=== PATIENT | female | born 1945 | race Native Hawaiian/Other Pacific Islander ===

== ENCOUNTER → 2016-09-25 | Outpatient (CLI) | payer MEDICARE ==
[~2016-09-25] MED LIST: ASPI1TAB69 PO; HYDR12.56 PO; LISI10TA3 PO; LOVA40TA PO; METH10TA PO; OXYC1TAB63 PO
[2016-09-25 11:18] LABS: AUTOMATED NEUTROPHIL # 4.5 TH/MM3 (1.8-7.7); BASOPHIL % 0.7 % (0.0-2.0); EOSINOPHIL % 0.4 % (0.0-4.0); HEMATOCRIT 26.7 % (35.0-46.0); HEMO FLAGS DIFF FINAL; LYMPH % 26.1 % (9.0-44.0); LYMPHOCYTE # 1.9 TH/MM3 (1.0-4.8); MEAN CELL VOLUME 87.7 FL (80.0-100.0); MEAN CORPUSCULAR HEMOGLOBIN 28.7 PG (27.0-34.0); MEAN CORPUSCULAR HGB CONC 32.7 % (32.0-36.0); MONO % 8.9 % (0.0-8.0); NEUT % 63.9 % (16.0-70.0); PLATELET COUNT 227 TH/MM3 (150-450); RED BLOOD COUNT 3.05 MIL/MM3 (4.00-5.30); RED CELL DISTRIBUTION WIDTH 13.7 % (11.6-17.2); WHITE BLOOD COUNT 7.1 TH/MM3 (4.0-11.0)
[2016-09-25 11:18] LABS: APTT (PATIENT) 23.6 SEC (24.3-30.1); PROTHROMBIN TIME - PATIENT 10.8 SEC (9.8-11.6)
[2016-09-25 11:31] LABS: ALKALINE PHOSPHATASE 66 U/L (45-117); ALT (GPT) 24 U/L (10-53); ANION GAP 7 MEQ/L (5-15); AST (GOT) 24 U/L (15-37); BICARBONATE 28.5 MEQ/L (21.0-32.0); BLOOD UREA NITROGEN 23 MG/DL (7-18); CHLORIDE 105 MEQ/L (98-107); GLOMERULAR FILTRATION RATE 48 ML/MIN (>89); GLUCOSE,FASTING 102 MG/DL (74-99); POTASSIUM 4.4 MEQ/L (3.5-5.1); SODIUM (NA) 140 MEQ/L (136-145); TOTAL BILIRUBIN ADULT 0.5 MG/DL (0.2-1.0)
--- NOTE | 2016-09-25 14:36 | EKG ---
Date Performed: 09/25/2016 Time Performed: 10:38:05 PTAGE: 71 years EKG: Sinus rhythm NONSPECIFIC T-WAVE ABNORMALITY BORDERLINE ECG Compared to prior tracing no significant change PREVIOUS TRACING 12/05/2003 11.56.03 DOCTOR: Eder Sutton Interpretating Date/Time 09/25/2016 14:35:05
--- NOTE | 2016-09-25 15:48 | RADRPT ---
EXAM DATE/TIME: 09/25/2016 11:19 [facility] COMPARISON: No previous studies available for comparison. INDICATIONS : Evaluate for pneumothorax, pneumonia or communicable disease Pre surgery uterine surgery MEDICAL HISTORY : None. SURGICAL HISTORY : None. ENCOUNTER: Initial ACUITY: 1 day PAIN SCORE: 0/10 LOCATION: Chest FINDINGS: There is a nodular density within the left upper lung field consistent with possible granuloma. The heart is top normal in size. The pulmonary vascular pattern is normal. The lungs are clear. Degener ative changes and scoliosis of the thoracolumbar spine are noted. Hardware is noted within the cervi hunter spine. There is no pneumothorax. CONCLUSION: 1. Probable tiny granuloma within the left upper lung field. 2. No acute focal pulmonary infiltrate or pulmonary vascular congestion. 3. Degenerative changes and scoliosis of the thoracolumbar spine. Joseph Bo MD on September 25, 2016 at 15:43 Board Certified Radiologist. This report was verified electronically.
== END ==
LOC: CPRE 10:03
PROVIDERS: ATTEND Obstetrics & Gynecology Gynecologic Oncology
DX: C53.9 Malignant neoplasm of cervix uteri, unspecified (principal); R94.31 Abnormal electrocardiogram [ECG] [EKG]
CPT/HCPCS: 36415; 71020; 80053; 85025; 85610; 85730; 93005

== ENCOUNTER → 2016-09-30 | Day surgery (SDC) | payer MEDICARE ==
[~2016-09-30] VITALS: Ht 157.5 cm; Wt 79.2 kg
[~2016-09-30] MED LIST changes: +DICLOFENAC SODIUM 37.5 MG/ML VIAL IV PUSH ONE; +DO NOT ADM ANY ANTICOAGULANT DRUGS XX PRN; +FERRIC SUBSULFATE 8 ML TOP SOLN TOPICAL ONE; +HYDROmorphone HCL PF 2 MG/ML VIAL ONE; +INSULIN HUMAN REGULAR 1,000 UNITS/10 ML VIAL SQ PRN; +KETOROLAC TROMETHAMINE 30 MG/ML (IVP) VIAL IV PUSH ONE; +LACTATED RINGER'S 1000 ML INJ 1,000 ML IV ONE; +LACTATED RINGER'S 1000 ML IV SCH; +LIDOCAINE 1%/EPINEPHrine 1:100,000 SOLN 50 ML VIAL ONE; +METOPROLOL TARTRATE 25 MG TAB PO PRN; +MIDAZOLAM HCL 2 MG/2 ML VIAL ONE; +ONDANSETRON HCL 4 MG/2 ML VIAL IV PUSH ONE; +PROPOFOL 200 MG/20 ML AMP IV ONE; +SILVER NITR/POTASSIUM NITRATE APPLICATORS ONE; +SODIUM CHLORID 0.9% 500 ML IV SCH
[2016-09-30 06:18] VITALS: BP 156/74; PULSE 84; RESP 20; TEMP 97.9; O2SAT 100
[2016-09-30 11:09] VITALS: BP 119/64; PULSE 65; RESP 16; O2SAT 100
[2016-09-30 11:51] LABS: AUTOMATED NEUTROPHIL # 10.2 TH/MM3 (1.8-7.7); BASOPHIL % 0.3 % (0.0-2.0); EOSINOPHIL % 0.1 % (0.0-4.0); HEMATOCRIT 28.7 % (35.0-46.0); LYMPH % 9.9 % (9.0-44.0); LYMPHOCYTE # 1.1 TH/MM3 (1.0-4.8); MEAN CELL VOLUME 88.1 FL (80.0-100.0); MEAN CORPUSCULAR HEMOGLOBIN 27.7 PG (27.0-34.0); MEAN CORPUSCULAR HGB CONC 31.5 % (32.0-36.0); MONO % 1.2 % (0.0-8.0); NEUT % 88.5 % (16.0-70.0); PLATELET COUNT 219 TH/MM3 (150-450); RED BLOOD COUNT 3.26 MIL/MM3 (4.00-5.30); RED CELL DISTRIBUTION WIDTH 13.3 % (11.6-17.2); WHITE BLOOD COUNT 11.5 TH/MM3 (4.0-11.0)
[2016-09-30 12:26] LABS: HEMO FLAGS AUTO DIFF
[2016-09-30 12:33] LABS: SCAN/DIFF AUTO DIFF CONFIRMED
--- NOTE | 2016-10-02 05:43 | MP ---
cc: LAURA DAVIS M.D., MARTHA M.D. MOLPUS, KELLY L. MD DATE OF SURGERY 09/30/2016 PREOPERATIVE DIAGNOSIS Endocervical versus endometrial adenocarcinoma. POSTOPERATIVE DIAGNOSIS Endometrial adenocarcinoma. HISTORY A 71-year-old female who had adenocarcinoma on a Pap smear. Cervix biopsy and endocervical curettings were benign, endometrial sampling not obtained. Imaging suggested thickening and fluid in the endometrial cavity. She was counseled regarding the need for further information to try to clarify the origin of the tumor and did provide additional details and she presents now for exam under anesthesia. She is seen in the preop holding area again where she is again counseled. Her questions were answered. She expressed good understanding and agreed to move forward. FINDINGS On exam under anesthesia there is no appreciably enlarged inguinal lymph nodes. External genitalia without mass or lesion. The vaginal mucosa and cervix grossly appear normal except for a small polypoid cystic mass at the 9 o'clock position on the cervix. There is no parametrial nodularity. The uterus and cervix are mobile. The uterine cavity sounds to 10 cm. On endocervical curetting, a scant amount of tissue is obtained. On endometrial curetting a large volume of polypoid tumor- appearing tissue is obtained. Frozen section of endometrial biopsy pending at the time of this dictation. PROCEDURE The patient is taken to the operating room, placed in dorsal lithotomy position after laryngeal mask anesthesia was administered. Time-out was undertaken. The patient was identified by sight recognition and hospital ID bracelet and the proposed procedure was reviewed and confirmed. She was carefully positioned in lithotomy position. Exam under anesthesia was performed with findings as described above. She was prepped and draped in sterile fashion. In-and-out catheterization of the bladder was performed. The cervix was grasped. Biopsy was taken at the 9 o'clock position on the cervix and then endocervical curettings were performed circumferentially, multiple passes. The tissue was combined as endocervical curettings. The cervix was then dilated after the uterine cavity was sounded to a depth of 10 cm. Multiple circumferential passes of the endometrium revealed a high volume of polypoid, tumor-appearing tissue. At the end of the curetting most of the endometrial surfaces had returned to a gritty feedback. There was complete hemostasis and the cervical biopsy sites and tenaculum site were rendered hemostatic with topical Monsel's solution. Pelvic exam confirmed there were no remaining foreign objects in the vagina. Preliminary and final counts were correct. She was returned to dorsal supine position and was pending reversal of anesthesia when I left the operating room to precede her to the Post-Anesthesia Care Unit. MD MICHELLE Ho/PEYTON /8:25 AM /5:33 AM
== END | disposition home or self-care (01) ==
LOC: HSDC 05:27
PROVIDERS: ATTEND Obstetrics & Gynecology Gynecologic Oncology
DX: C54.1 Malignant neoplasm of endometrium (principal); N95.0 Postmenopausal bleeding; N72 Inflammatory disease of cervix uteri
CPT/HCPCS: 00940; 58120; 85025; 86850; 86900; 86901; 88305; 88331; J1130; J1170; J2250; J2405; J7120

== ENCOUNTER 2016-10-20 08:33 | Observation (INO) | payer MEDICARE ==
[~2016-10-20] VITALS: Ht 157.5 cm; Wt 77.0 kg
[~2016-10-20 08:33] MED LIST changes: -DICLOFENAC SODIUM 37.5 MG/ML VIAL IV PUSH ONE; -DO NOT ADM ANY ANTICOAGULANT DRUGS XX PRN; -FERRIC SUBSULFATE 8 ML TOP SOLN TOPICAL ONE; -HYDROmorphone HCL PF 2 MG/ML VIAL ONE; -INSULIN HUMAN REGULAR 1,000 UNITS/10 ML VIAL SQ PRN; -KETOROLAC TROMETHAMINE 30 MG/ML (IVP) VIAL IV PUSH ONE; -LACTATED RINGER'S 1000 ML INJ 1,000 ML IV ONE; -LACTATED RINGER'S 1000 ML IV SCH; -LIDOCAINE 1%/EPINEPHrine 1:100,000 SOLN 50 ML VIAL ONE; -METOPROLOL TARTRATE 25 MG TAB PO PRN; -MIDAZOLAM HCL 2 MG/2 ML VIAL ONE; -ONDANSETRON HCL 4 MG/2 ML VIAL IV PUSH ONE; -OXYC1TAB63 PO; -PROPOFOL 200 MG/20 ML AMP IV ONE; -SILVER NITR/POTASSIUM NITRATE APPLICATORS ONE; -SODIUM CHLORID 0.9% 500 ML IV SCH
[2016-10-20 09:14] VITALS: BP 156/70; PULSE 78; RESP 16; TEMP 98.7; O2SAT 100
[2016-10-20] MEDS ORDERED: SODIUM CHLORID 0.9% 500 ML IV PRN (09:15)
[2016-10-20] MEDS ORDERED: LACTATED RINGER'S 1000 ML IV PRN (09:15)
[2016-10-20] MEDS ORDERED: METOPROLOL TARTRATE 25 MG TAB PO PRN (09:15)
[2016-10-20] MEDS ORDERED: POVIDONE IODINE 5% (ANTISEPSIS KIT) 4 APPLICATIONS EACH NARE PRN (09:15)
[2016-10-20] MEDS ORDERED: INSULIN HUMAN REGULAR 1,000 UNITS/10 ML VIAL SQ PRN (09:15)
[2016-10-20] MEDS ORDERED: CHLORHEXIDINE GLUCONATE 2 % 1 PACK (2 CLOTHS) TOPICAL PRN (09:15)
[2016-10-20] MEDS ORDERED: HEPARIN SODIUM - SQ 10,000 UNITS/ML VIAL SQ SCH (09:30)
[2016-10-20] MEDS ORDERED: ceFAZolin 1,000 MG/NS 100 ML IV SCH ×2 (09:30)
[2016-10-20] MEDS ORDERED: ACETAMINOPHEN 1000 MG/100 ML VIAL IV ONE (11:20)
[2016-10-20] MEDS ORDERED: SUGAMMADEX SODIUM 200 MG/2 ML VIAL IV PUSH ONE ×2 (11:20)
[2016-10-20] MEDS ORDERED: fentaNYL CITRATE 250 MCG/5 ML AMP ONE ×2 (11:27→15:50)
[2016-10-20] MEDS ORDERED: FAMOTIDINE 20 MG/2 ML VIAL ONE (11:27)
[2016-10-20] MEDS ORDERED: MIDAZOLAM HCL 2 MG/2 ML VIAL ONE (11:27)
[2016-10-20] MEDS ORDERED: ONDANSETRON HCL 4 MG/2 ML VIAL IV PUSH ONE (12:00)
[2016-10-20] MEDS ORDERED: NORMOSOL R INJ 2,000 ML IV ONE (12:00)
[2016-10-20] MEDS ORDERED: NEOSTIGMINE 3 MG/3 ML SYR IV ONE (12:00)
[2016-10-20] MEDS ORDERED: PROPOFOL 200 MG/20 ML AMP IV ONE (12:00)
[2016-10-20] MEDS ORDERED: ePHEDrine/NS 25 MG/5 ML SYR IV ONE (12:00)
[2016-10-20] MEDS ORDERED: LIDOCAINE 1%/EPINEPHrine 1:100,000 SOLN 50 ML VIAL INFIL ONE (12:55)
[2016-10-20] MEDS ORDERED: ceFAZolin INJ 1,000 MG VIAL IV ONE (14:04)
[2016-10-20] MEDS ORDERED: METHYLENE BLUE 100 MG/10 ML VIAL OTHER ONE (14:21)
[2016-10-20] MEDS ORDERED: SILVER NITR/POTASSIUM NITRATE APPLICATORS TOPICAL ONE (15:12)
[2016-10-20] MEDS ORDERED: DO NOT ADM ANY ANTICOAGULANT DRUGS PRN (15:44)
[2016-10-20 15:45] VITALS: BP 146/65; PULSE 80; RESP 18; TEMP 96.6; O2SAT 98
[2016-10-20] MEDS ORDERED: ONDANSETRON HCL 4 MG/2 ML VIAL IVP PRN (16:00)
[2016-10-20] MEDS: KETOROLAC TROMETHAMINE 30 MG/ML (IVP) VIAL IVP SCH ×2 (16:00→22:55)
[2016-10-20] MEDS ORDERED: ONDANSETRON INJ 8 MG in DEXTROSE 5% IN WATER INJ 50 ML IV PUSH PRN ×2 (16:00)
[2016-10-20] MEDS ORDERED: SODIUM CHLORIDE 0.9% FLUSH 10 ML FLUSH IV FLUSH PRN (16:00)
[2016-10-20] MEDS ORDERED: oxyCODONE/ACETAMINOPHEN 5 MG/325 MG TAB PO PRN ×2 (16:00)
[2016-10-20] MEDS ORDERED: LORazepam 0.5 MG TAB PO PRN (16:00)
[2016-10-20] MEDS ORDERED: diphenhydrAMINE HCL 25 MG CAP PO PRN (16:00)
[2016-10-20] MEDS: D5-1/2 NS + KCL 20 MEQ INJ 1,000 ML IV SCH ×2 (16:17→22:55)
[2016-10-20] MEDS ORDERED: *morphine SULFATE 8 MG/ML PERIprocedure ONLY ONE (16:21)
[2016-10-20] MEDS: METHADONE HCL 10 MG TAB PO SCH (18:42)
[2016-10-20 20:00] VITALS: BP 123/58; PULSE 80; RESP 16; TEMP 97.6; O2SAT 98
[2016-10-20] MEDS: SODIUM CHLORIDE 0.9% FLUSH 10 ML FLUSH IV FLUSH SCH (20:02)
[2016-10-21] VITALS: BP 99/51; PULSE 72; RESP 16; TEMP 96.6; O2SAT 98
[2016-10-21 04:00] VITALS: BP 99/50; PULSE 67; RESP 16; TEMP 97.3; O2SAT 100
[2016-10-21 04:57] VITALS: O2SAT 98
[2016-10-21] MEDS: KETOROLAC TROMETHAMINE 30 MG/ML (IVP) VIAL IVP SCH ×2 (05:04→08:45)
[2016-10-21 05:35] LABS: AUTOMATED NEUTROPHIL # 7.2 TH/MM3 (1.8-7.7); BASOPHIL % 0.2 % (0.0-2.0); HEMATOCRIT 23.9 % (35.0-46.0); HEMO FLAGS DIFF FINAL; LYMPHOCYTE # 1.5 TH/MM3 (1.0-4.8); MEAN CELL VOLUME 85.1 FL (80.0-100.0); MEAN CORPUSCULAR HEMOGLOBIN 28.3 PG (27.0-34.0); MEAN CORPUSCULAR HGB CONC 33.2 % (32.0-36.0); MONO % 7.3 % (0.0-8.0); NEUT % 76.5 % (16.0-70.0); PLATELET COUNT 155 TH/MM3 (150-450); RED BLOOD COUNT 2.81 MIL/MM3 (4.00-5.30); RED CELL DISTRIBUTION WIDTH 13.6 % (11.6-17.2); WHITE BLOOD COUNT 9.4 TH/MM3 (4.0-11.0)
[2016-10-21 06:21] LABS: BICARBONATE 28.6 MEQ/L (21.0-32.0); POTASSIUM 4.3 MEQ/L (3.5-5.1)
[2016-10-21 08:00] VITALS: BP 103/55; PULSE 70; RESP 16; TEMP 96.7; O2SAT 98
[2016-10-21] MEDS: D5-1/2 NS + KCL 20 MEQ INJ 1,000 ML IV SCH (08:00)
[2016-10-21] MEDS: METHADONE HCL 10 MG TAB PO SCH (08:44)
[2016-10-21] MEDS ORDERED: OXYC1TAB63 PO (08:44)
[2016-10-21] MEDS: SODIUM CHLORIDE 0.9% FLUSH 10 ML FLUSH IV FLUSH SCH (08:45)
[2016-10-21] MEDS ORDERED: LISINOPRIL 10 MG TAB PO SCH (09:00)
[2016-10-21] MEDS ORDERED: PRAVASTATIN SOD 40 MG TAB PO SCH (09:00)
[2016-10-21] MEDS ORDERED: HYDROCHLOROTHIAZIDE 12.5 MG CAP PO SCH (09:00)
--- NOTE | 2016-10-27 07:32 | MP ---
cc: LAURA DAVIS M.D., KELLY L. MD ARGUELO, MARTHA, MD DATE OF SURGERY 10/20/2016 PREOPERATIVE DIAGNOSIS Uterine papillary serous carcinoma. POSTOPERATIVE DIAGNOSES 1. Uterine papillary serous carcinoma. 2. Extensive pelvic adhesions. PROCEDURE 1. Robotic-assisted laparoscopic hysterectomy bilateral salpingo-oophorectomy, extensive lysis of adhesions. 2. Left ureterolysis. SURGEON Radha Chester MD FILTER WASHER Ulster sampler first. ANESTHESIA General endotracheal anesthesia ESTIMATED BLOOD LOSS 300 cc. URINE OUTPUT 400 cc. IV FLUIDS 2200 cc. HISTORY A 71-year-old female with postmenopausal bleeding, thickened endometrial stripe. D&C showed high-grade endometrial cancer consistent with uterine papillary serous carcinoma. She underwent a PET/CT scan that showed multifocal PET-avid nodularity highly suspicious for metastatic disease including what was interpreted as bilateral PET-avid pelvic lymph nodes, a PET-avid lymph node at the aortic bifurcation, a conglomeration of PET-avid adenopathy high in the periaortic and pericaval region at the level of the renal vessels, left axillary and left supraclavicular PET-avid adenopathy. She has been counseled regarding these findings and the need to consider postoperative chemotherapy as well as the limitations with respect to surgery being able to address of all these areas surgically. We have agreed upon the objectives to remove the primary tumor with hysterectomy, bilateral salpingo-oophorectomy and assess for metastatic disease, remove what can safely be removed with the anticipation of chemotherapy after she recovers from surgery. She was seen again in the preop holding area where we again discussed these objectives findings and plan and she expressed good understanding. FINDINGS The uterus was symmetrically enlarged, approximately 10 cm. Both ovaries were prominent. The left ovary was approximately 6 cm, was partially retroperitonealized, was densely adherent to the left pelvic sidewall posterior cul-de-sac and the sigmoid colon and mesentery were overlying this mass. The right ovary was approximately 4 cm and was fixed in the posterior cul-de-sac against the right pelvic sidewall and there were dense adhesions in the cul-de-sac and lower uterine segment in the region of the bladder flap. STATEMENT OF COMPLEXLY The complexity of this case was increased significantly due to the dense pelvic adhesions. A significant amount of additional time was required to lyse adhesions, restore anatomy to gain access to the pelvis and to accomplish surgical objectives. Modifier should be applied accordingly. PROCEDURE The patient was taken to the operating room, placed in dorsal lithotomy position. After general endotracheal anesthesia was administered, time-out was undertaken. The patient was identified by sight recognition and hospital ID brafareed and the proposed procedure was reviewed and confirmed. She was carefully positioned in padded Ronan stirrups. Her arms were padded and secured to her sides. She was further secured to the operating table with eggcrate padding and tape in across-chest [id number] fashion. All sites were noted be properly aligned with no malalignments or pressure points. She was prepped in sterile fashion, draped below the waist, placed in high lithotomy position. The cervix was grasped, uterine cavity sounded, the cervix dilated. V-CARE manipulator was inserted and secured in the usual fashion. Garibay catheter was placed in the bladder. She was returned to low lithotomy position. A change of sterile gloves was undertaken. We completed draping in anticipation of laparoscopy. Laparoscopy confirmed that an orogastric tube was in the stomach on suction. With manual elevation of the abdominal wall and direct laparoscopic visualization, a 5-mm cannula was placed in the left upper quadrant. Carbon dioxide gas was insufflated, then a 12-mm cannula was placed in midline above the umbilicus and an 8-mm cannula was placed in the right upper and left lateral abdomen, the 5-mm cannula exchanged for an 8-mm cannula. Perineal washings were obtained for cytology. The anatomy was explored with the findings as described above. She is placed in steep Trendelenburg position. The small bowel was folded back on its mesenteric root to the extent possible and three Ray-Yaya sponges were placed around the root of the small bowel mesentery. The robotic system was brought into the operative field, attached in the usual fashion. Monopolar scissors, fenestrated bipolar forceps and ProGrasp manipulators placed in arms #1, 2 and 3 respectively and I took my place at the surgeon's console. Extensive lysis of adhesions was carried out to free the right ovary from its attachments to the posterior cul-de-sac and right pelvic sidewall, to free the ileocecal region from overlying at the pelvic brim adhesions. The right round ligament was isolated, cauterized, transected. Anterior and posterior leaves of the broad ligament were opened, the right ureter was identified, right infundibulopelvic ligament was isolated. The infundibulopelvic ligament was dissected to the level of the pelvic brim where it was cauterized and transected. Additional lysis of adhesion was used to dissect open the rectovaginal septum as the colon was adherent posteriorly and to reestablish the anatomy of the cul-de-sac. The posterior peritoneum was opened and the right vesicouterine peritoneum was dissected off the lower uterine segment and cervix with lysis of adhesions. The right uterine vessels were skeletonized and cauterized and then attention was directed toward the left side. Retroperitoneal dissection was carried out. Extensive lysis of adhesion were required to mobilize the colon from the overlying structures and to remove the right ovary from its adhesions that were circumferential and to mobilize it from its retroperitoneal position. The left round ligament was isolated, cauterized, transected. The anterior and posterior leaves of the broad ligament were further dissected until the ureter was identified as it crossed the iliac bifurcation. Sharp and blunt dissection were used to dissect the adjacent tissue to free the ureter along its course in the pelvis which allowed the infundibulopelvic ligament to be mobilize ventrally and the intervening peritoneum was opened. The infundibulopelvic ligament was cauterized at the level of the pelvic brim and transected and additional lysis of adhesion was carried out posteriorly and laterally until the left tube and ovary could be elevated. During this dissection it was clear that there was what appeared to be tumor extruding through the capsule of the left ovarian mass. Some of this tissue was obtained laparoscopically and sent for frozen section analysis which confirmed a high-grade adenocarcinoma. The left uterine vessels were now skeletonized as the vesicouterine peritoneum was dissected off the lower uterine segment and cervix. The left uterine vessels were cauterized and transected as were the cardinal, paracervical and uterosacral ligaments. Attention was redirected to the right side where the right uterine vessels were now transected. The cardinal, paracervical and uterosacral ligaments were isolated, cauterized and transected in a stepwise fashion. Circumferential colpotomy was performed the cervix from the upper vagina. The specimen was withdrawn transvaginally which included the uterus, cervix, both tubes and ovaries and a pneumooccluder balloon was placed in the vagina to maintain pneumoperitoneum. Instruments 1 and 3 were exchanged for needle drivers as 0 Vicryl suture was introduced. The vaginal cuff was closed starting at the left corner, a full-thickness closure incorporating the posterior peritoneum, edge of the uterosacral ligament, tied via instrument tie. The suture was held on countertraction as a running continuous closure was carried across the vaginal apex to the contralateral corner where it was similarly secured, tied and the needle was cut and removed. The right pelvic sidewall spaces were opened. There was no overt adenopathy but there were dense adhesions at the bifurcation of the iliac vein suggesting the possibility of metastatic disease in lymph nodes in that region. If so, they were densely adherent to the pelvic veins. It is my clinical impression that what was described as bilateral pelvic adenopathy, PET-avid actually represented bilateral ovarian metastases as inspection on the left side similarly revealed no overt enlarged adenopathy in the area where the ovaries were stuck at the pelvic sidewall to correlate with the PET-avid masses seen on CAT scan. Inspection of the periaortic region revealed no adenopathy that could be safely resected and we have already confirmed metastatic disease from frozen section of the ovary, so it is felt that any further dissection would be associated with morbidity that exceeded benefit, understanding that chemotherapy has already been recommended postoperatively. The integrity of the bladder was checked by filling the bladder with saline dyed with methylene blue. It distended nicely under pressure. There were no thin areas of the bladder and certainly no extravasation of dye. There was a good margin between the bladder edge and the vaginal cuff suture line, good peristalsis of ureters bilaterally and the bladder was drained. The pelvis was thoroughly irrigated, small bleeders rendered hemostatic with bipolar cautery. Sites were hemostatic and therefore the robotic instruments were removed. The robotic system was disengaged from the operative field. I reentered the bedside under sterile condition. Each of the three Ray-Yaya sponges that had been placed in the peritoneal cavity were now removed. Each were inspected and noted to be removed in their entirety. There were no remaining foreign objects in the pelvis other than some intentionally placed Candido hemostatic powder. Preliminary counts were correct. A 12-mm fascial defect was closed with interrupted 0 Vicryl suture tied securely, rendered the fascia completely airtight and hemostatic. The remaining cannulas were withdrawn. Carbon dioxide gas was removed. 3-0 Vicryl subcutaneous, 3-0 Vicryl subcuticular and Steri-Strips were used to close these incisions. She was returned to dorsal lithotomy position. Pelvic exam confirmed that the vaginal cuff was well-supported. There were no remaining foreign objects in the vagina, no lacerations, was hemostatic. Final counts were correct. She was returned to dorsal supine position and pending reversal of anesthesia when I left the operating room to precede her to the Post-Anesthesia Care Unit. Radha Chester MD KM/SSB /7:36 AM /7:09 AM
--- NOTE | 2016-10-27 13:22 | MD ---
cc: LAURA DAVIS M.D., MARTHA M.D. MOLPUS,NEFTALI Powell MD ADMISSION DATE: 10/20/2016 DISCHARGE DATE: 10/21/2016 PROCEDURE October 20, 2016 - Robotic-assisted laparoscopic hysterectomy bilateral salpingo-oophorectomy, extensive lysis of adhesions. DIAGNOSIS Uterine papillary serous carcinoma. HOSPITAL COURSE She did well during the early 24-hour period after surgery, tolerating oral intake. Garibay catheter removed pending voiding. OBJECTIVE Labs this morning showed an H&H of 7.9 and 23.9. Recent hematocrit has been in the 8 to 9 range preoperatively so this does not represent a significant change. White count 9.4, platelet 155. Electrolytes essentially normal; creatinine elevated at 1.17, also consistent with a baseline glucose slightly elevated at 132. In's and out's overnight 3780/1110. VITAL SIGNS: She is afebrile, pulse 67-80, respirations 16, blood pressure 99-123/50-58, O2 saturation is greater than or equal to 98%. GENERAL: Alert and oriented x 3. LUNGS: Clear except for mild basilar rales. CARDIOVASCULAR: Regular rate rhythm. ABDOMEN: Soft. Incision is clean and dry. SENIOR PROCUREMENT SPECIALIST: No bleeding. ASSESSMENT Postop day #1. FINDINGS AT SURGERY Preliminary pathology and steps taken are discussed and reviewed. Activities, restrictions again covered. She is doing well and anticipate she will be ready for discharge to home. PLAN Therefore anticipate discharge to home today. She is to call our office to schedule follow up within 2 weeks. She is to resume prior medications. Discharge to home. Our office number is made available. She is to contact our office to schedule followup within 2 weeks. She is to resume prior medications. Prescription provided for Percocet for pain as needed and she is to contact our office should there be any questions or problems between now and the time of scheduled followup. Neftali Chester MD KM/[place] /8:50 AM /1:16 PM
== END 2016-10-21 12:34 | disposition home or self-care (01) ==
LOC: HSDC 08:33 → HSDI 15:53 → HOCA 16:58
PROVIDERS: ADMIT Obstetrics & Gynecology Gynecologic Oncology; ATTEND Obstetrics & Gynecology Gynecologic Oncology
DX: C55 Malignant neoplasm of uterus, part unspecified (principal); D25.1 Intramural leiomyoma of uterus; N73.6 Female pelvic peritoneal adhesions (postinfective); N80.0 Endometriosis of uterus; I10 Essential (primary) hypertension; E78.5 Hyperlipidemia, unspecified; D64.9 Anemia, unspecified
CPT/HCPCS: 50949; 58571; 80048; 85025; 86850; 86900; 86901; 88112; 88305; 88307; 88309; 88331; 94150; G0378; J0131; J0690; J1644; J1885; J2250; J2270; J2405; J2710; J3010; J3480; J7120

== ENCOUNTER 2016-11-14 07:29 | Day surgery (SDC) | payer MEDICARE ==
[~2016-11-14] VITALS: Ht 157.5 cm; Wt 77.3 kg
[~2016-11-14 07:29] MED LIST changes: +OXYC1TAB63 PO
[2016-11-14 07:56] VITALS: BP 179/88; PULSE 95; RESP 20; TEMP 97.9; O2SAT 97
[2016-11-14 08:20] LABS: AUTOMATED NEUTROPHIL # 6.7 TH/MM3 (1.8-7.7); BASOPHIL % 0.4 % (0.0-2.0); EOSINOPHIL # 0.2 TH/MM3 (0-0.4); EOSINOPHIL % 1.9 % (0.0-4.0); HEMATOCRIT 32.5 % (35.0-46.0); HEMO FLAGS DIFF FINAL; LYMPH % 15.7 % (9.0-44.0); LYMPHOCYTE # 1.4 TH/MM3 (1.0-4.8); MEAN CELL VOLUME 83.1 FL (80.0-100.0); MEAN CORPUSCULAR HEMOGLOBIN 25.9 PG (27.0-34.0); MEAN CORPUSCULAR HGB CONC 31.2 % (32.0-36.0); MONO % 7.7 % (0.0-8.0); NEUT % 74.3 % (16.0-70.0); PLATELET COUNT 164 TH/MM3 (150-450); RED BLOOD COUNT 3.92 MIL/MM3 (4.00-5.30); RED CELL DISTRIBUTION WIDTH 14.2 % (11.6-17.2)
[2016-11-14 08:30] LABS: APTT (PATIENT) 23.7 SEC (24.3-30.1); PROTHROMBIN TIME - PATIENT 10.7 SEC (9.8-11.6)
[2016-11-14] MEDS ORDERED: VANCOMYCIN 1000 MG/NS 250 ML - implanted port/tunneled catheter IV SCH ×2 (08:30)
[2016-11-14] MEDS ORDERED: ceFAZolin 2 GM PREMIX 50 ML - implanted port/tunneled catheter insertion IV SCH (08:30)
[2016-11-14] MEDS ORDERED: CHLORHEXIDINE GLUCONATE 2 % 1 PACK (2 CLOTHS) TOPICAL SCH (08:30)
[2016-11-14] MEDS ORDERED: SODIUM CHLORIDE 0.9% 1000 ML IV SCH (08:30)
[2016-11-14] MEDS ORDERED: POVIDONE IODINE 5% (ANTISEPSIS KIT) 4 APPLICATIONS EACH NARE SCH (08:30)
[2016-11-14] MEDS ORDERED: LIDOCAINE 1%/EPINEPHrine 1:100,000 SOLN 20 ML VIAL ONE (09:42)
[2016-11-14] MEDS ORDERED: MIDAZOLAM HCL 5 MG/5 ML VIAL ONE (09:43)
[2016-11-14] MEDS ORDERED: fentaNYL CITRATE 250 MCG/5 ML AMP ONE (09:44)
[2016-11-14 10:45] VITALS: BP 178/76; PULSE 107; RESP 20; TEMP 97.9; O2SAT 93
--- NOTE | 2016-11-14 10:54 | PD.RAD ---
Post Procedure Progress Note Pre Procedure Diagnosis: (1) Uterine cancer Post Procedure Diagnosis: (1) Uterine cancer Procedure Date: November 14, 2016 Supervising Radiologist: Gaurav Garcias Proceduralist/Assist: Cora Lazcano RT(R), RT Rossy(R)() Anesthesia: Local, Analgesia, Conscious Sedation Plan of Activity Patient to Unit: [facility]OP[facility] Patient Condition: Good See PACS Report for procedural detail/treatment Central Venous Access Device Procedure 1 Right Internal Jugular Infusaport Placement single lumen Citizen Of [place]: 8 Gaurav Garcias MD November 14, 2016 10:53
[2016-11-14 11:00] VITALS: BP 152/71; PULSE 107; RESP 20; O2SAT 95
[2016-11-14] MEDS ORDERED: SODIUM CHLORIDE 0.9% FLUSH 10 ML FLUSH IVF PRN (11:00)
[2016-11-14 12:00] VITALS: BP 106/69; PULSE 115; RESP 18; O2SAT 94
[2016-11-14 12:30] VITALS: BP 120/70; PULSE 107; RESP 18; O2SAT 94
--- NOTE | 2016-11-14 15:54 | RADRPT ---
EXAM DATE/TIME: 11/14/2016 09:57 [facility] COMPARISON: No previous studies available for comparison. INDICATIONS : Patient with uterine papillary serous carcinoma in need of Noisp-u-Youf placement. MEDICAL HISTORY : HTN, Blood clots, HLD SURGICAL HISTORY : Hysterectomy, Bilateral salpingo-oophorectomy, Extensive lysis of adhesions ENCOUNTER: Initial ACUITY: 2 weeks PAIN SCORE: 0/10 FLUORO TIME: 0.5 minutes IMAGE SERIES: 1 SEDATION TIME: 30 minutes ACCESS: Right internal jugular vein SEDATION: 1.) 3 mg midazolam (Versed) IV 2.) 150 mcg fentanyl (Sublimaze) IV Prophylactic antibiotics were administered with appropriate pre-procedure timing. Vancomycin within 2 hours of procedure, Ancef (or alternative) within 1 hour of procedure. DEVICE: 1. 8 Indian single lumen Bard Power Port PROCEDURE : 1. Continuous pulse oximetry and EKG monitoring. 2. Intravenous conscious sedation. 3. Ultrasound guidance for venous access. 4. Fluoroscopic guided implantable central venous port placement. The patient was placed supine. The neck was prepped in sterile fashion. Full sterile technique was u sed, including cap, mask, sterile gloves and gown, and a large sterile sheet. Hand hygiene and 2% ch lorhexidine Betadine was utilized per protocol for cutaneous antisepsis with appropriate dry time for site. The skin and subcutaneous tissues were infiltrated with local anesthetic solution. Under direct ultrasound guidance, central venous access was accomplished in the targeted vessel. The ultrasound images depicting access guidance were stored and saved to PACS for permanent record. A s ubcutaneous pocket was created using blunt dissection. The port was introduced to the pocket. The c atheter tubing was fed through a subcutaneous tunnel to the venotomy site. The catheter tubing was c ut to a suitable length and then was introduced through a valved Peel-Away sheath and positioned with catheter tubing tip at the cavo-atrial junction level. The pocket incision was closed with subcutic ular Vicryl suture. Steri-Strips were applied. The port was flushed and locked with heparin solutio n per protocol. Sterile dressing was applied to the site. The patient tolerated the procedure well. Conscious sedation was performed with the prescribed dosages and duration as above in the presence of an independent trained radiology nurse to assist in the monitoring of the patient. EKG and oximetry remained stable throughout the procedure. The patient tolerated the procedure well and there were no complications. The patient was sent to post anesthesia recovery in stable condition. CONCLUSION: Uncomplicated ultrasound and fluoroscopic guided implanted central venous port catheter placement as described in detail above. An 8 Indian Power port was placed. Gaurav Garcias MD on November 14, 2016 at 15:52 Board Certified Radiologist. This report was verified electronically.
== END 2016-11-14 12:50 | disposition home or self-care (01) ==
LOC: HROP 07:29 → HRIP 07:30 → HROP 12:50
PROVIDERS: ATTEND Obstetrics & Gynecology Gynecologic Oncology
DX: C55 Malignant neoplasm of uterus, part unspecified (principal); E78.5 Hyperlipidemia, unspecified; I10 Essential (primary) hypertension; Z01.818 Encounter for other preprocedural examination
CPT/HCPCS: 36561; 76937; 77001; 85025; 85610; 85730; 99152; 99153; C1788; J0690; J1642; J2250; J3010; J3370; J7030; J7050